=== PATIENT | female | born 1975 | race Caucasian/White ===

== ENCOUNTER 2020-01-31 20:51 | Emergency (ER) | payer BC ==
[~2020-01-31] VITALS: Ht 157.5 cm; Wt 62.1 kg
[~2020-01-31 20:51] MED LIST: CIPR500T3 PO; HYDR-3237 PO; Iron PO; TAMS-11 PO; TRAM50TA2 PO
[2020-01-31] MEDS ORDERED: METOCLOPRAMIDE 5 MG/ML, 2ML ONE (21:26)
[2020-01-31] MEDS ORDERED: KETOROLAC 30 MG/1 ML ONE (21:26)
[2020-01-31] MEDS ORDERED: DIPHENHYDRAMINE 50 MG/ML, 1ML ONE (21:27)
[2020-01-31] MEDS ORDERED: SODIUM CHLORIDE FLUSH 10ML SYR IVF ONE (21:30)
[2020-01-31] MEDS ORDERED: KETOROLAC 30 MG/1 ML IVPush ONE (21:30)
[2020-01-31] MEDS ORDERED: METOCLOPRAMIDE 5 MG/ML, 2ML IVPush ONE (21:30)
[2020-01-31] MEDS ORDERED: SODIUM CHLORIDE 0.9% 1,000ML IVBOLUS ONE (21:30)
[2020-01-31] MEDS ORDERED: DIPHENHYDRAMINE 50 MG/ML, 1ML IVPush ONE (21:30)
[2020-01-31 21:31] LABS: BASOPHILS # (AUTO) 0.06 x10^3/uL (0-0.1); BASOPHILS % (AUTO) 1 % (0-1); EOSINOPHILS # (AUTO) 0.24 x10^3/uL (0-0.4); EOSINOPHILS % (AUTO) 4 % (1-7); LYMPHOCYTES # (AUTO) 2.45 x10^3/uL (1-3.4); LYMPHOCYTES % (AUTO) 37 % (22-44); MD NO; MEAN CORPUSCULAR HEMOGLOBIN 31.2 pg (27.0-34.8); MEAN CORPUSCULAR HGB CONC 33.8 g/dL (32.4-35.8); MEAN CORPUSCULAR VOLUME 92.4 fL (80-100); MEAN PLATELET VOLUME 8.8 fL (7.4-10.4); MONOCYTES # (AUTO) 0.47 x10^3/uL (0.2-0.8); MONOCYTES % (AUTO) 7 % (2-9); NEUTROPHILS # (AUTO) 3.35 x10^3/uL (1.8-6.8); NEUTROPHILS % (AUTO) 51 % (42-75); PLATELET COUNT 241 x10^3/uL (130-400); RED BLOOD COUNT 4.71 x10^6/uL (3.82-5.3); RED CELL DISTRIBUTION WIDTH 15.9 % (9.6-15.2)
[2020-01-31 21:42] LABS: ALANINE AMINOTRANSFERASE 17 U/L (12-78); ALBUMIN 3.8 g/dL (3.4-5.0); ANION GAP 7 mmol/L (5-15); CALCIUM 8.7 mg/dL (8.5-10.1); CHLORIDE 110 mmol/L (98-107); CREATININE 0.79 mg/dL (0.55-1.02)
[2020-01-31 21:45] LABS: ALKALINE PHOSPHATASE 40 U/L (45-117); BILIRUBIN,TOTAL 0.4 mg/dL (0.2-1.0); TOTAL PROTEIN 7.1 g/dL (6.4-8.2)
--- NOTE | 2020-01-31 21:57 | NUR ---
PT COMPLAINING OF MIGRAINE AND DIZZINESS. IV STARTED AND MEDICATIONS GIVEN. DIMMED LIGHTS, CALL NOLASCO GIVEN TO PT. WILL CONTINUE TO MONITOR PT.
--- NOTE | 2020-01-31 22:30 | NUR ---
PT RESTING COMFORTABLY. WILL CONTINUE TO MONITOR
--- NOTE | 2020-01-31 22:57 | NUR ---
PT AMBULATED WELL. PT STATES HER HEADACHE AND DIZZINESS HAS SUBSIDED. PT STATES SHE IS FEELING BETTER.
[2020-01-31 23:03] VITALS: BP 108/67
== END 2020-01-31 23:25 | disposition home or self-care (01) ==
LOC: ED 21:14
DX: G43.109 Migraine with aura, not intractable, without status migrainosus (principal); R55 Syncope and collapse; F17.200 Nicotine dependence, unspecified, uncomplicated; R11.0 Nausea; Z90.710 Acquired absence of both cervix and uterus
CPT/HCPCS: 36415; 80053; 85025; 93005; 96361; 96374; 96375; 99284; J1200; J1885; J2765; J7030

== ENCOUNTER 2021-01-27 20:01 | Emergency (ER) | payer BC ==
[~2021-01-27] VITALS: Ht 157.5 cm; Wt 59.2 kg
[~2021-01-27 20:01] MED LIST changes: -CIPR500T3 PO; +CIPR500T4 PO
[2021-01-27] MEDS ORDERED: DIAZ5TAB PO (20:07)
[2021-01-27] MEDS ORDERED: BUSP10TA PO (20:07)
--- NOTE | 2021-01-27 20:09 | NUR ---
URINE SPECIMEN CUP PROVIDED AND INSTRUCTED ON CLEAN CATCH.
--- NOTE | 2021-01-27 20:13 | NUR ---
PT. IN BR IN LOBBY WHEN CALLED FOR ROOM.
--- NOTE | 2021-01-27 20:16 | NUR ---
INVENTORY CONTROL SUPERVISOR: PT. TO ROOM FROM LOBBY AT THIS TIME.
[2021-01-27] MEDS ORDERED: KETOROLAC 30 MG/1 ML IVPush ONE (20:30)
[2021-01-27] MEDS ORDERED: ONDANSETRON 2MG/ML, 2ML ONE (20:30)
[2021-01-27] MEDS ORDERED: SODIUM CHLORIDE FLUSH 10ML SYR IVF ONE (20:30)
[2021-01-27] MEDS ORDERED: ONDANSETRON 2MG/ML, 2ML IVPush ONE (20:30)
[2021-01-27] MEDS ORDERED: KETOROLAC 30 MG/1 ML ONE (20:30)
[2021-01-27 20:46] LABS: MICROSCOPIC NOT IND
--- NOTE | 2021-01-27 20:50 | NUR ---
PT CAME INTO ED THIS EVENING DUE TO LOWER LEFT ABDOMINAL PAIN THAT STARTED AROUND 11 AM THIS AM. PT HAS A HX OF ENDOMETRIOSIS BUT STATES IT IS NEVER PAINFUL LIKE THIS. PT NAD, VSS, PLACED ON SPO2/BP MONITORING. PROVIDED BLANKETS FOR COMFORT, UA SENT TO LAB, LABS DRAWN. MEDICATED PER NOV FOR PAIN. BED IN LOWEST, RAILS ENGAGED, CALL LIGHT ON LAP. WCTM.
[2021-01-27 21:12] LABS: BASOPHILS % (AUTO) 1 % (0-1); EOSINOPHILS % (AUTO) 3 % (1-7); LYMPHOCYTES % (AUTO) 43 % (22-44); MEAN CORPUSCULAR HEMOGLOBIN 32.1 pg (27.0-34.8); MEAN CORPUSCULAR HGB CONC 34.1 g/dL (32.4-35.8); MEAN PLATELET VOLUME 9.4 fL (7.4-10.4); MONOCYTES % (AUTO) 8 % (2-9); NEUTROPHILS % (AUTO) 46 % (42-75); PLATELET COUNT 217 x10^3/uL (130-400); RED BLOOD COUNT 4.51 x10^6/uL (3.82-5.3); RED CELL DISTRIBUTION WIDTH 13.2 % (9.6-15.2)
[2021-01-27 21:13] LABS: MD NO
[2021-01-27] MEDS ORDERED: MORPHINE SULFATE 4 MG/ML, 1ML ONE ×2 (21:15→22:24)
[2021-01-27] MEDS: MORPHINE SULFATE 4 MG/ML, 1ML IVPush PRN ×2 (21:17→22:25)
[2021-01-27 21:23] LABS: ALANINE AMINOTRANSFERASE 19 U/L (12-78); ANION GAP 6 mmol/L (5-15); CALCIUM 8.8 mg/dL (8.5-10.1); CHLORIDE 108 mmol/L (98-107); CREATININE 0.95 mg/dL (0.55-1.02)
--- NOTE | 2021-01-27 21:23 | NUR ---
US AT BS. PT NAD, APPEARS COMFORTABLE, VSS, MEDICATED FOR PAIN DUE TO ORIGINAL INTERVENTION NOT HELPING. WCTM. AT BS.
[2021-01-27 21:28] LABS: ALKALINE PHOSPHATASE 36 U/L (45-117); BILIRUBIN,TOTAL 0.5 mg/dL (0.2-1.0); TOTAL PROTEIN 6.5 g/dL (6.4-8.2)
[2021-01-27 23:22] VITALS: BP 115/70
--- NOTE | 2021-01-27 23:22 | NUR ---
Patient/Caregiver given discharge instructions and they have confirmed that they understand the instructions. Patient ambulatory with steady gait.
== END 2021-01-27 23:22 | disposition home or self-care (01) ==
LOC: ED 20:49
DX: N83.202 Unspecified ovarian cyst, left side (principal); Z90.710 Acquired absence of both cervix and uterus
CPT/HCPCS: 36415; 74176; 76830; 80053; 81003; 83690; 84703; 85025; 96374; 96375; 96376; 99285; J1885; J2270; J2405

== ENCOUNTER 2021-01-31 19:03 | Emergency (ER) | payer BC ==
[~2021-01-31] VITALS: Ht 167.6 cm; Wt 59.8 kg
[~2021-01-31 19:03] MED LIST changes: +BUSP10TA PO; +DIAZ5TAB PO
--- NOTE | 2021-01-31 19:26 | NUR ---
THIS IS A 45F THAT COMES IN FOR ABD PAIN/ LOW BACK PAIN. PT WAS SEEN MONDAY DX WITH OVARIAN CYST, WAS SEEN BY OBGYN AND SCHEDULED FOR SURGERY MONDAY. PT STS SHE HAS TRIED ALL OF HER HOME MEDS WITHOUT IMPROVEMENT. PT REPORTS BURNING PAIN IN LLQ AND BILAT LOW BACK PAIN. PT CONNECTED TO MONITORING VSS, SPOUSE AT BEDSIDE FOR SUPPORT.
[2021-01-31] MEDS ORDERED: ONDANSETRON 2MG/ML, 2ML ONE (19:30)
[2021-01-31] MEDS ORDERED: MORPHINE SULFATE 4 MG/ML, 1ML ONE ×2 (19:30→20:44)
[2021-01-31] MEDS ORDERED: ONDANSETRON 2MG/ML, 2ML IVPush ONE (19:30)
[2021-01-31] MEDS ORDERED: SODIUM CHLORIDE FLUSH 10ML SYR IVF ONE (19:30)
[2021-01-31] MEDS: MORPHINE SULFATE 4 MG/ML, 1ML IVPush PRN ×2 (19:41→20:48)
--- NOTE | 2021-01-31 19:41 | NUR ---
PIV STARTED, PT MEDICATED PER MAR, VSS TOLERATED WELL
[2021-01-31 19:58] LABS: BASOPHILS % (AUTO) 1 % (0-1); EOSINOPHILS % (AUTO) 4 % (1-7); LYMPHOCYTES % (AUTO) 38 % (22-44); MEAN CORPUSCULAR HEMOGLOBIN 32.4 pg (27.0-34.8); MEAN CORPUSCULAR HGB CONC 34.2 g/dL (32.4-35.8); MEAN PLATELET VOLUME 9.2 fL (7.4-10.4); MONOCYTES % (AUTO) 8 % (2-9); NEUTROPHILS % (AUTO) 49 % (42-75); PLATELET COUNT 208 x10^3/uL (130-400); RED BLOOD COUNT 4.61 x10^6/uL (3.82-5.3); RED CELL DISTRIBUTION WIDTH 13.1 % (9.6-15.2)
--- NOTE | 2021-01-31 20:04 | NUR ---
PT REPORTS IMPROVEMENT IN PAIN, EDUCATED ON NEED FOR URINE SAMPLE
[2021-01-31 20:05] LABS: ALANINE AMINOTRANSFERASE 15 U/L (12-78); ALBUMIN 3.9 g/dL (3.4-5.0); ANION GAP 5 mmol/L (5-15); CALCIUM 8.2 mg/dL (8.5-10.1); CHLORIDE 110 mmol/L (98-107); CREATININE 0.83 mg/dL (0.55-1.02)
[2021-01-31 20:07] LABS: ALKALINE PHOSPHATASE 34 U/L (45-117); BILIRUBIN,TOTAL 0.2 mg/dL (0.2-1.0); TOTAL PROTEIN 6.7 g/dL (6.4-8.2)
[2021-01-31 20:16] LABS: MD NO
--- NOTE | 2021-01-31 20:48 | NUR ---
ERP AT BEDSIDE
--- NOTE | 2021-01-31 20:54 | NUR ---
PT MEDICATED FOR PAIN, URINE SENT TO LAB
[2021-01-31 21:01] LABS: MICROSCOPIC NOT IND
[2021-01-31 21:48] VITALS: BP 102/65
--- NOTE | 2021-01-31 21:49 | NUR ---
Patient/Caregiver given discharge instructions and they have confirmed that they understand the instructions. Patient ambulatory with steady gait.
== END 2021-01-31 21:51 | disposition home or self-care (01) ==
LOC: ED 19:56
DX: N83.292 Other ovarian cyst, left side (principal); G43.909 Migraine, unspecified, not intractable, without status migrainosus; Z88.8 Allergy status to other drugs, medicaments and biological substances; Z91.041 Radiographic dye allergy status
CPT/HCPCS: 36415; 76830; 80053; 81003; 85025; 96374; 96375; 96376; 99284; J2270; J2405

== ENCOUNTER 2021-05-23 15:56 | Emergency (ER) | payer BC ==
[~2021-05-23] VITALS: Ht 157.5 cm; Wt 58.8 kg
[2021-05-23 16:44] LABS: BASOPHILS % (AUTO) 1 % (0-1); EOSINOPHILS % (AUTO) 5 % (1-7); LYMPHOCYTES % (AUTO) 31 % (22-44); MEAN CORPUSCULAR HEMOGLOBIN 32.2 pg (27.0-34.8); MEAN CORPUSCULAR HGB CONC 33.9 g/dL (32.4-35.8); MEAN PLATELET VOLUME 9.4 fL (7.4-10.4); MONOCYTES % (AUTO) 6 % (2-9); NEUTROPHILS % (AUTO) 58 % (42-75); PLATELET COUNT 213 x10^3/uL (130-400); RED BLOOD COUNT 4.98 x10^6/uL (3.82-5.3); RED CELL DISTRIBUTION WIDTH 12.9 % (9.6-15.2)
[2021-05-23 17:01] LABS: ALBUMIN 3.7 g/dL (3.4-5.0); ANION GAP 4 mmol/L (5-15); CALCIUM 8.8 mg/dL (8.5-10.1); CHLORIDE 108 mmol/L (98-107)
[2021-05-23 17:08] LABS: CREATININE 0.76 mg/dL (0.55-1.02)
[2021-05-23 17:13] LABS: MICROSCOPIC NOT IND
[2021-05-23 20:25] VITALS: BP 115/37
[2021-05-23] MEDS ORDERED: ONDANSETRON ODT 4 MG ONE (20:38)
[2021-05-23] MEDS ORDERED: KETOROLAC 30 MG/1 ML ONE (20:38)
[2021-05-23] MEDS ORDERED: ONDANSETRON ODT 4 MG PO ONE (21:00)
[2021-05-23] MEDS ORDERED: KETOROLAC 30 MG/1 ML IM ONE (21:00)
--- NOTE | 2021-05-23 21:02 | NUR ---
RECEIVED REPORT FROM LIANG EMANUEL. PELVIC CART AT BEDSIDE.
--- NOTE | 2021-05-23 21:06 | NUR ---
REPORT GIVEN TO DORIS TAVERA
--- NOTE | 2021-05-23 21:17 | NUR ---
PA AT BEDSIDE FOR PELVIC EXAM.
[2021-05-23] MEDS ORDERED: FLUCONAZOLE 100 MG TABLET PO ONE (21:30)
[2021-05-23] MEDS ORDERED: FLUCONAZOLE 100 MG TABLET ONE (21:33)
[2021-05-23 21:53] LABS: WET PREP WBCS FEW (FEW)
--- NOTE | 2021-05-23 21:53 | NUR ---
REPORT TO LIANG CASEY
[2021-05-23 21:54] LABS: CLUE CELLS NONE SEEN (NONE SEEN)
--- NOTE | 2021-05-23 22:11 | NUR ---
Patient/Caregiver given discharge instructions and they have confirmed that they understand the instructions. Patient ambulatory with steady gait. NAD, all questions answered appropriately, denies additional needs at this time. No personal belongings left in room after discharge.
== END 2021-05-23 22:19 | disposition home or self-care (01) ==
LOC: ED 20:57
DX: B37.3 Candidiasis of vulva and vagina (principal); N88.8 Other specified noninflammatory disorders of cervix uteri; R30.0 Dysuria; F17.210 Nicotine dependence, cigarettes, uncomplicated; G43.909 Migraine, unspecified, not intractable, without status migrainosus; Z90.710 Acquired absence of both cervix and uterus
CPT/HCPCS: 36415; 80048; 81003; 82040; 84703; 85025; 87210; 87491; 87591; 87808; 96372; 99284; 99406; J1885; Q0162; 99283

== ENCOUNTER 2021-05-27 08:47 | Emergency (ER) | payer BC ==
[~2021-05-27] VITALS: Ht 157.5 cm; Wt 59.6 kg
--- NOTE | 2021-05-27 09:29 | NUR ---
PT BIB SELF VIA POV. PER PT SHE HAS HAD HAND/FEET ITCHING FOR 2 WEEKS. PT STATES THAT HER COMMERCIAL AGENT TOLD HER YESTERDAY THAT HER URINE SUGAR WAS 3X TOO HIGH, BS 89 IN TRIAGE TODAY. PT STATES SHE HAS TRIED BENADRYL FOR ITCHING AT HOME WITH LITTLE RELIEF. PT RESTING IN [facility], MONITORING IN PLACE, [place] AT THIS TIME, WCTM.
[2021-05-27 09:55] LABS: BASOPHILS % (AUTO) 1 % (0-1); EOSINOPHILS % (AUTO) 3 % (1-7); LYMPHOCYTES % (AUTO) 21 % (22-44); MEAN CORPUSCULAR HEMOGLOBIN 32.4 pg (27.0-34.8); MEAN CORPUSCULAR HGB CONC 34.2 g/dL (32.4-35.8); MEAN PLATELET VOLUME 9.7 fL (7.4-10.4); MONOCYTES % (AUTO) 5 % (2-9); NEUTROPHILS % (AUTO) 72 % (42-75); PLATELET COUNT 199 x10^3/uL (130-400); RED CELL DISTRIBUTION WIDTH 12.9 % (9.6-15.2)
[2021-05-27 09:59] LABS: ALBUMIN 3.7 g/dL (3.4-5.0); ANION GAP 5 mmol/L (5-15); CALCIUM 8.7 mg/dL (8.5-10.1); CHLORIDE 110 mmol/L (98-107); CREATININE 0.66 mg/dL (0.55-1.02)
[2021-05-27 10:35] LABS: MICROSCOPIC NOT IND
[2021-05-27 12:11] VITALS: BP 135/74
== END 2021-05-27 12:12 | disposition home or self-care (01) ==
LOC: ED 08:52
DX: T78.40XA Allergy, unspecified, initial encounter (principal); X58.XXXA Exposure to other specified factors, initial encounter
CPT/HCPCS: 80048; 81003; 82040; 82962; 84703; 85025; 99283; J7512